=== PATIENT | female | born 1990 | race Caucasian/White ===

== ENCOUNTER 2017-03-10 10:02 | Emergency (ER) | payer MEDICAID ==
[~2017-03-10] VITALS: Ht 162.6 cm; Wt 60.0 kg
[2017-03-10 10:04] VITALS: BP 139/92; PULSE 118; RESP 18; TEMP 98.4; O2SAT 100
[2017-03-10 10:44] LABS: AUTOMATED NEUTROPHIL # 6.6 TH/MM3 (1.8-7.7); BASOPHIL % 0.4 % (0.0-2.0); EOSINOPHIL # 0.2 TH/MM3 (0-0.4); EOSINOPHIL % 2.2 % (0.0-4.0); HEMATOCRIT 45.5 % (35.0-46.0); HEMO FLAGS DIFF FINAL; LYMPHOCYTE # 2.2 TH/MM3 (1.0-4.8); MEAN CELL VOLUME 88.9 FL (80.0-100.0); MEAN CORPUSCULAR HEMOGLOBIN 30.4 PG (27.0-34.0); MEAN CORPUSCULAR HGB CONC 34.2 % (32.0-36.0); NEUT % 68.4 % (16.0-70.0); PLATELET COUNT 340 TH/MM3 (150-450); RED BLOOD COUNT 5.12 MIL/MM3 (4.00-5.30); WHITE BLOOD COUNT 9.6 TH/MM3 (4.0-11.0)
[2017-03-10 10:50] LABS: BACTERIA, URINE OCC /hpf; BLOOD, URINE NEG (NEG); GLUCOSE,URINE NEG (NEG); KETONE, URINE NEG (NEG); NITRITE,URINE NEG (NEG); SQUAMOUS EPITHELIAL CELL URINE 7 /hpf (0-5); TRANSITIONAL EPI CELLS, URINE <1 /hpf; URINE COLOR YELLOW (YELLW/STRAW)
[2017-03-10 10:51] LABS: COMMENT (UR) CULT NOT INDICATED; CULTURE IF INDICATED CULT NOT INDICATED
--- NOTE | 2017-03-10 11:03 | PD ---
HPI Chief Complaint: Dizziness Time Seen by Provider: 11:02 Travel History International Travel<30 days: No Contact w/Intl Traveler<30days: No Traveled to known affect area: No History of Present Illness HPI 26-year-old female came to the emergency room with history of chronic headache along with on and off lightheadedness for past 2 weeks. Patient seems pretty anxious and stressed out about this. She also tells me that she has had a lot of stress in her life lately including juggling her full-time job and school. Also her and her are looking into buying a house which is still owing to the process. They have a 1-year-old son. She has not been sleeping more than 5-6 hours a day for past couple months. She has not been exercising like she used to. All this has making her symptoms worse. Vital signs were stable although patient says her blood pressure usually runs in 1 teens. She has been nauseous from time to time but no vomiting. No diarrhea. She thinks she has lost maybe 5 pounds in past 4 months. No history of syncopal episode. No history of fever or chills. No history of cough. No history of head trauma. Patient does have history of cervical disc protrusion and goes to chiropractor for that. She was diagnosed with that 5 years ago. Her [id number] is here with her who concurs that she has been very stressed and needs a break. Patient wears glasses and has not had vision tested for over a year. [facility] Past Medical History Narrative Medical List of her past medical, surgical, social and family history is reviewed from the nursing note. ?: Not LMP: JAN 2017 Social History Tobacco Use: No Allergies-Medications (Allergen,Severity, Reaction): Coded Allergies: No Known Allergies (Verified Allergy, Unknown, 03/10/17) Comments No known drug allergies. Reported Meds & Prescriptions Reported Meds & Active Scripts Active Sprintec 28 (Norgestimate-Ethinyl Estradiol) 0.25-35 mg-Mcg Tab 1 Tab PO DAILY Reported [Sprintec] Unknown Dose PO DAILY Narrative Medication List of her home medications reviewed from the nursing note. Review of Systems Except as stated in HPI: all other systems reviewed are Neg HENT: Positive: Headaches Neurologic: Positive: Dizziness Physical Exam Narrative GENERAL: Awake, alert, anxious, no obvious distress SKIN: Focused skin assessment warm/dry. HEAD: Atraumatic. Normocephalic. EYES: Pupils equal and round. No scleral icterus. No injection or drainage. ENT: No nasal bleeding or discharge. Mucous membranes pink and moist. NECK: Trachea midline. No JVD. CARDIOVASCULAR: Regular rate and rhythm. No murmur appreciated. RESPIRATORY: No accessory muscle use. Clear to auscultation. Breath sounds equal bilaterally. GASTROINTESTINAL: Abdomen soft, non-tender, nondistended. Hepatic and splenic margins not palpable. MUSCULOSKELETAL: No obvious deformities. No clubbing. No cyanosis. No edema. NEUROLOGICAL: Awake and alert. No obvious cranial nerve deficits. Motor grossly within normal limits. Normal speech. PSYCHIATRIC: Appropriate mood and affect; insight and judgment normal. Data Data Last Documented VS Orders Orders Electrocardiogram (03/10/17 10:06) Complete Blood Count With Diff (03/10/17 10:06) Comprehensive Metabolic Panel (03/10/17 10:06) Ed Urine Pregnancytest Poc (03/10/17 10:06) Urinalysis - C+S If Indicated (03/10/17 10:21) Ed Discharge Order (03/10/17 11:23) Labs Laboratory Tests Test 03/10/17 10:15 White Blood Count 9.6 TH/MM3 Red Blood Count 5.12 MIL/MM3 Hemoglobin 15.6 GM/DL Hematocrit 45.5 % Mean Corpuscular Volume 88.9 FL Mean Corpuscular Hemoglobin 30.4 PG Mean Corpuscular Hemoglobin Concent 34.2 % Red Cell Distribution Width 13.0 % Platelet Count 340 TH/MM3 Mean Platelet Volume 8.0 FL Neutrophils (%) (Auto) 68.4 % Lymphocytes (%) (Auto) 23.0 % Monocytes (%) (Auto) 6.0 % Eosinophils (%) (Auto) 2.2 % Basophils (%) (Auto) 0.4 % Neutrophils # (Auto) 6.6 TH/MM3 Lymphocytes # (Auto) 2.2 TH/MM3 Monocytes # (Auto) 0.6 TH/MM3 Eosinophils # (Auto) 0.2 TH/MM3 Basophils # (Auto) 0.0 TH/MM3 CBC Comment DIFF FINAL Differential Comment Urine Color YELLOW Urine Turbidity CLEAR Urine pH 7.0 Urine Specific [place] 1.015 Urine Protein NEG mg/dL Urine Glucose (UA) NEG mg/dL Urine Ketones NEG mg/dL Urine Occult Blood NEG Urine Nitrite NEG Urine Bilirubin NEG Urine Urobilinogen LESS THAN 2.0 MG/DL Urine Leukocyte Esterase NEG Urine RBC 1 /hpf Urine WBC 1 /hpf Urine Squamous Epithelial Cells 7 /hpf Urine Transitional Epithelial Cells <1 /hpf Urine Bacteria OCC /hpf Microscopic Urinalysis Comment CULT NOT INDICATED Blood Urea Nitrogen 10 MG/DL Creatinine 0.66 MG/DL Random Glucose 87 MG/DL Total Protein 8.6 GM/DL Albumin 4.3 GM/DL Calcium Level 9.7 MG/DL Alkaline Phosphatase 88 U/L Aspartate Amino Transf (AST/SGOT) 19 U/L Alanine Aminotransferase (ALT/SGPT) 25 U/L Total Bilirubin 0.7 MG/DL Sodium Level 136 MEQ/L Potassium Level 3.7 MEQ/L Chloride Level 103 MEQ/L Carbon Dioxide Level 25.1 MEQ/L Anion Gap 8 MEQ/L Estimat Glomerular Filtration Rate 110 ML/MIN MDM Medical Decision Making Medical Screen Exam Complete: Yes Emergency Medical Condition: Yes Medical Record Reviewed: Yes Interpretation(s) Twelve-lead EKG was reviewed by me. Normal sinus rhythm, normal axis, nonspecific ST-T wave changes. Heart rate of 68 bpm. Differential Diagnosis Anxiety, sleep deprivation, chronic headache Narrative Course 11:46 AM blood test and UA was initiated in triage and they are back and within normal limit. I was in the room talking to the patient for more than 15 minutes and gave her insight into the fact that most of her symptoms are related to her lifestyle currently. I explained to her the importance of good sleep which in her case should be at least 8 hours along with trying to minimize stress in her life. She was worried if she should get a CAT scan of her head which I told her in my opinion would be a very low yield since by my exam she does not seem to have any neurologic issues. She understood and agreed and I explained to her that once she gets her insurance she should try to get a primary care so that all these could be discussed with him or her as well. I will discharge her home. Procedures EKG Prior to Arrival: No Diagnosis Primary Impression: Dizziness Additional Impressions: Chronic headache Qualified Codes: R51 - Headache Sleep deprivation Referrals: Primary Care Physician Additional Instructions: You have a very stressful life from what you have said. You have not been sleeping adequately. Please try to do some lifestyle modifications which would bring more calmness and tranquility to your life. All this will help with the symptoms that she was suffering from and minimize them. Try to get more sleep. At least 8 hours of sleep is recommended for your age. Eat healthy and exercise. Do get your eyes checked for patient. You should have a primary care physician so that you can discuss these things on a routine basis with your primary care. Return to the ER if the condition worsens or any other new concerns. Scripts Norgestimate-Ethinyl Estradiol (Sprintec 28) 0.25-35 mg-Mcg Tab 1 TAB PO DAILY for Control, #1 PACK 0 Refills Prov: Sherrie Guerrero MD 03/10/17 Disposition: 01 DISCHARGE HOME Condition: Stable Sherrie Guerrero MD Mar 10, 2017 11:03
[2017-03-10 11:06] VITALS: BP 141/87; PULSE 85; RESP 16; O2SAT 100
[2017-03-10 11:11] LABS: ANION GAP 8 MEQ/L (5-15); AST (GOT) 19 U/L (15-37); BICARBONATE 25.1 MEQ/L (21.0-32.0); BLOOD UREA NITROGEN 10 MG/DL (7-18); CHLORIDE 103 MEQ/L (98-107); GLOMERULAR FILTRATION RATE 110 ML/MIN (>89); POTASSIUM 3.7 MEQ/L (3.5-5.1); SODIUM (NA) 136 MEQ/L (136-145)
[2017-03-10 11:15] LABS: ALKALINE PHOSPHATASE 88 U/L (45-117); ALT (GPT) 25 U/L (10-53); TOTAL BILIRUBIN ADULT 0.7 MG/DL (0.2-1.0)
[2017-03-10] MEDS ORDERED: SPRINTEC PO (11:27)
[2017-03-10] MEDS ORDERED: SPRI28TA PO (11:34)
--- NOTE | 2017-03-10 15:24 | EKG ---
Date Performed: 03/10/2017 Time Performed: 11:39:43 PTAGE: 26 years EKG: Sinus rhythm NORMAL ECG NO PREVIOUS TRACING DOCTOR: Yovany Mace Interpretating Date/Time 03/10/2017 15:22:46
== END 2017-03-10 11:50 | disposition home or self-care (01) ==
LOC: NEPD 10:02
DX: R42 Dizziness and giddiness (principal); R51 Headache; Z72.820 Sleep deprivation
CPT/HCPCS: 80053; 81001; 84703; 85025; 93005; 99284